=== PATIENT | male | born 1995 | race Caucasian/White ===

== ENCOUNTER 2019-04-05 21:47 | Emergency (ER) | payer OTHER ==
[~2019-04-05] VITALS: Ht 154.9 cm; Wt 106.6 kg
[2019-04-05] MEDS ORDERED: IBUPROFEN 800800 MG PO (22:58)
[2019-04-05] MEDS ORDERED: NORCO 5-325 TA1 EAC1 PO (22:58)
[2019-04-05] MEDS ORDERED: KEFLEX500 M1 PO (22:59)
[2019-04-05 23:12] VITALS: BP 125/61
== END 2019-04-05 23:12 | disposition home or self-care (01) ==
LOC: M.ERS 21:47
DX: S60.131A Contusion of right middle finger with damage to nail, initial encounter (principal); W23.0XXA Caught, crushed, jammed, or pinched between moving objects, initial encounter; Y92.89 Other specified places as the place of occurrence of the external cause; Y93.89 Activity, other specified; Y99.8 Other external cause status